=== PATIENT | male | born 1935 | race Caucasian/White ===

== ENCOUNTER 2017-01-08 07:41 | Day surgery (SDC) | payer OTHER ==
[2017-01-08] MEDS ORDERED: DIPHENHYDRAMINE 25 MG in SODIUM CHLORIDE 50 ML IVPB ONE (08:00)
[2017-01-08] MEDS ORDERED: SODIUM CHLORIDE 250 ML IV ONE (08:00)
[2017-01-08] MEDS ORDERED: ACETAMINOPHEN 325 MG TABLET (FP) PO ONE (08:00)
[2017-01-08] MEDS ORDERED: SODIUM CHLORIDE IVPB ONE (08:30)
[2017-01-08] MEDS ORDERED: RITUXIMAB IVPB ONE (08:30)
[2017-01-08 11:19] LABS: BASOPHIL 0.6 % (0-2.0); EOSINOPHIL 0.9 % (0-4.5); MCH 28.1 pg (25.7-33.7); MCHC 33.1 g/dl (32.0-35.9); MEAN CELL VOLUME 84.9 fl (80-96); MEAN PLT VOLUME 8.9 fl (7.5-11.1); NEUTROPHILS 73.5 % (42.8-82.8); PLATELET COUNT 132 K/MM3 (134-434); RDW 14.4 % (11.9-15.9); WHITE BLOOD COUNT 6.3 K/mm3 (4.0-10.0)
[2017-01-08 13:26] LABS: ANION GAP 10 (8-16); C-REACTIVE PROTEIN < 0.3 MG/DL (0.00-0.3); CALCIUM 8.8 mg/dL (8.5-10.1); CO2 27 mmol/L (21-32); COCKROFT - GAULT 77; GLUCOSE,RANDOM 87 mg/dL (74-106); LDH 131 U/L (87-241)
[2017-01-08 13:27] LABS: ALBUMIN 3.4 g/dl (3.4-5.0); BILIRUBIN,DIRECT 0.1 mg/dL (0.0-0.2); BILIRUBIN,TOTAL 0.4 mg/dL (0.2-1.0); TOT PROT 6.9 g/dl (6.4-8.2)
[2017-01-08 13:59] LABS: BASOPHIL 0.5 % (0-2.0); EOSINOPHIL 0.9 % (0-4.5); MCH 27.9 pg (25.7-33.7); MCHC 32.5 g/dl (32.0-35.9); MEAN CELL VOLUME 85.8 fl (80-96); MEAN PLT VOLUME 8.8 fl (7.5-11.1); NEUTROPHILS 75.1 % (42.8-82.8); PLATELET COUNT 130 K/MM3 (134-434); RDW 14.3 % (11.9-15.9); WHITE BLOOD COUNT 6.2 K/mm3 (4.0-10.0)
[2017-01-08 17:26] VITALS: BP 155/83; PULSE 49; TEMP 97.9
[2017-01-09 08:07] LABS: IGG IMMUNOGLOBULIN 1028 mg/dL (700-1600)
== END 2017-01-08 18:14 | disposition home or self-care (01) ==
LOC: JONCCHEMO 07:41 → J7W 12:05 → JONCCHEMO 18:14
PROVIDERS: ATTEND Internal Medicine Hematology & Oncology
PROC: 3E03305 Introduction of Other Antineoplastic into Peripheral Vein, Percutaneous Approach (ICD-10-PCS; principal; 2017-01-08)
PROC: 3E033GC Introduction of Other Therapeutic Substance into Peripheral Vein, Percutaneous Approach (ICD-10-PCS; 2017-01-08)
PROC: 3E0337Z Introduction of Electrolytic and Water Balance Substance into Peripheral Vein, Percutaneous Approach (ICD-10-PCS; 2017-01-08)
DX: Z51.11 Encounter for antineoplastic chemotherapy (principal); C82.28 Follicular lymphoma grade III, unspecified, lymph nodes of multiple sites
CPT/HCPCS: 96367; 96375; 96413; J9310; 36415; 80048; 80076; 82784; 83615; 85025; 85651; 86140; 96360; 96361; 96415

== ENCOUNTER 2017-03-05 07:45 | Day surgery (SDC) | payer OTHER ==
[2017-03-05] MEDS ORDERED: SODIUM CHLORIDE 250 ML IV ONE (08:00)
[2017-03-05] MEDS ORDERED: ACETAMINOPHEN 325 MG TABLET (FP) PO ONE (08:30)
[2017-03-05] MEDS ORDERED: DIPHENHYDRAMINE 25 MG in SODIUM CHLORIDE 50 ML IVPB ONE (08:30)
[2017-03-05] MEDS ORDERED: RITUXIMAB IVPB ONE (09:00)
[2017-03-05] MEDS ORDERED: SODIUM CHLORIDE IVPB ONE (09:00)
[2017-03-05 10:32] LABS: BASOPHIL 0.5 % (0-2.0); EOSINOPHIL 0.7 % (0-4.5); MCHC 33.1 g/dl (32.0-35.9); MEAN CELL VOLUME 84.5 fl (80-96); MEAN PLT VOLUME 8.6 fl (7.5-11.1); NEUTROPHILS 74.8 % (42.8-82.8); PLATELET COUNT 138 K/MM3 (134-434); RDW 13.8 % (11.9-15.9); WHITE BLOOD COUNT 5.7 K/mm3 (4.0-10.0)
[2017-03-05 11:03] LABS: ALBUMIN 3.4 g/dl (3.4-5.0); ALK PHOS 67 U/L (45-117); ANION GAP 6 (8-16); BILIRUBIN,DIRECT 0.2 mg/dL (0.0-0.2); BILIRUBIN,TOTAL 0.4 mg/dL (0.2-1.0); CALCIUM 8.6 mg/dL (8.5-10.1); CO2 25 mmol/L (21-32); GLUCOSE,RANDOM 109 mg/dL (74-106); SGOT/AST 14 U/L (15-37); SGPT/ALT 24 U/L (12-78); TOT PROT 6.9 g/dl (6.4-8.2)
[2017-03-05 16:30] VITALS: BP 149/83; PULSE 51; TEMP 98
[2017-03-06 06:09] LABS: IGG IMMUNOGLOBULIN 1054 mg/dL (700-1600); IGM IMMUNOGLOBULIN 73 mg/dL (15-143)
== END 2017-03-05 16:32 | disposition home or self-care (01) ==
LOC: JONCCHEMO 07:45 → J7W 12:14 → JONCCHEMO 16:32
PROVIDERS: ATTEND Internal Medicine Hematology & Oncology
PROC: 3E03305 Introduction of Other Antineoplastic into Peripheral Vein, Percutaneous Approach (ICD-10-PCS; principal; 2017-03-05)
PROC: 3E033GC Introduction of Other Therapeutic Substance into Peripheral Vein, Percutaneous Approach (ICD-10-PCS; 2017-03-05)
PROC: 3E0337Z Introduction of Electrolytic and Water Balance Substance into Peripheral Vein, Percutaneous Approach (ICD-10-PCS; 2017-03-05)
DX: Z51.11 Encounter for antineoplastic chemotherapy (principal); C82.28 Follicular lymphoma grade III, unspecified, lymph nodes of multiple sites
CPT/HCPCS: 96361; 96375; 96413; 96415; J9310; 36415; 80053; 80076; 82784; 83735; 85025; 85651

== ENCOUNTER 2017-03-11 19:00 | Emergency (ER) | payer OTHER ==
--- NOTE | 2017-03-11 19:20 | PDOC ---
History of Present Illness - General History Source: Patient Exam Limitations: No Limitations - History of Present Illness Initial Comments: 03/11/17 19:46 The patient is a 81 year old male, with a significant past medical history of gout, anxiety, and non-hodgkin's lymphoma that is under control, who presents to the emergency department with increased blood pressure and subjective fever. The patient reports that when he woke up from a nap 1 hour prior to arrival he felt like he was burning up. He reports that his ears felt very hot and he then when he checked his blood pressure it was higher than normal. He then became concerned and came into the ER with his . He denies chest pain, shortness of breath, headache and dizziness. He denies chills, nausea, vomit, diarrhea and constipation. Allergies:iodinated contrast material, penicillins, IVP dye Past surgical history: Bilateral hip replacement Social history: Never smoked PCP: Dr. Tomer Forte <Erlinda Jesus - Last Filed: 03/11/17 19:46> <Rom Kwon - Last Filed: 03/12/17 06:37> - General Chief Complaint: Blood Pressure Problem Stated Complaint: HIGH BLOOD PRESSURE Time Seen by Provider: 03/11/17 19:20 Past History <Erlinda Jesus - Last Filed: 03/11/17 19:46> - Past Medical History Cancer: Yes (BASAL CELL) Kidney Stones: Yes Psychiatric Problems: Yes (ANXIETY) - Surgical History Orthopedic Surgery: Yes (MERNA HIP REPLACEMENT) - Psycho/Social/Smoking Cessation Hx Anxiety: Yes Suicidal Ideation: No Smoking History: Never smoked Have you smoked in the past 12 months: No Hx Alcohol Use: No Drug/Substance Use Hx: No Substance Use Type: Alcohol Hx Substance Use Treatment: No <Rom Kwon - Last Filed: 03/12/17 06:37> - Past Medical History Allergies/Adverse Reactions: Allergies Allergy/AdvReac Type Severity Reaction Status Date / Time Iodinated Contrast Media - Allergy Verified 03/11/17 19:15 Oral and Penicillins Allergy "RASH" Verified 03/11/17 19:15 IVP DYE Allergy Difficulty Uncoded 03/11/17 19:15 Breathing Home Medications: Ambulatory Orders Allopurinol [Zyloprim -] 150 mg PO DAILY 10/23/13 Ascorbic Acid [Vitamin C -] 500 mg PO DAILY 10/23/13 Milk Thistle 500 mg PO DAILY 10/23/13 Saw Wiseman 160 mg PO DAILY 10/23/13 Ubidecarenone [Coenzyme Q10] 100 mg PO DAILY 10/23/13 Cyanocobalamin (Vitamin B-12) [Vitamin B12] 5,000 mcg PO DAILY 12/16/15 Ibuprofen [Advil -] 200 mg PO PRN PRN 12/16/15 Alprazolam 0.125 mg PO ASDIR PRN 04/14/16 Allopurinol [Zyloprim -] 150 mg PO DAILY 03/11/17 Review of Systems - Review of Systems Able to Perform ROS?: Yes Comments:: 03/11/17 19:47 GENERAL/CONSTITUTIONAL: +Subjective fever, +high blood pressure No chills. No weakness. HEAD, EYES, EARS, NOSE AND THROAT: No change in vision. No ear pain or discharge. No sore throat. CARDIOVASCULAR: No chest pain or shortness of breath. RESPIRATORY: No cough, wheezing, or hemoptysis. GASTROINTESTINAL: No nausea, vomiting, diarrhea or constipation. GENITOURINARY: No dysuria, frequency, or change in urination. MUSCULOSKELETAL: No joint or muscle swelling or pain. No neck or back pain. SKIN: No rash NEUROLOGIC: No headache, vertigo, loss of consciousness, or change in strength/ sensation. ENDOCRINE: No increased thirst. No abnormal weight change. HEMATOLOGIC/LYMPHATIC: No anemia, easy bleeding, or history of blood clots. ALLERGIC/IMMUNOLOGIC: No hives or skin allergy. <EdinErlinda - Last Filed: 03/11/17 19:46> *Physical Exam - Vital Signs Last Vital Signs Temp Pulse Resp BP Pulse Ox 97.9 F 60 16 184/64 98 03/11/17 19:13 03/11/17 19:13 03/11/17 19:13 03/11/17 19:13 03/11/17 19:13 - Physical Exam Comments: 03/11/17 19:47 GENERAL: Awake, alert, and fully oriented, in no acute distress HEAD: No signs of trauma EYES: PERRLA, EOMI, sclera anicteric, conjunctiva clear ENT: Auricles normal inspection, hearing grossly normal, nares patent, oropharynx clear without exudates. Moist mucosa NECK: Normal ROM, supple, no lymphadenopathy, JVD, or masses LUNGS: Breath sounds equal, clear to auscultation bilaterally. No wheezes, and no crackles HEART: Regular rate and rhythm, normal S1 and S2, no murmurs, rubs or gallops ABDOMEN: Soft, nontender, normoactive bowel sounds. No guarding, no rebound. No masses EXTREMITIES: Normal range of motion, no edema. No clubbing or cyanosis. No cords, erythema, or tenderness NEUROLOGICAL: Cranial nerves II through XII grossly intact. Normal speech, normal gait SKIN: Warm, Dry, normal turgor, no rashes or lesions noted. <Erlinda Jesus - Last Filed: 03/11/17 19:46> Medical Decision Making - Medical Decision Making 03/12/17 06:36 asymptomatic htn advised re: diet and exercise PCP fu <Rom Kwon - Last Filed: 03/12/17 06:37> *DC/Admit/Observation/Transfer - Attestations Scribe Attestion: 03/11/17 19:47 Documentation prepared by MEG Moreno, acting as medical assistant dermatology for Rom Kwon MD. <Erlinda Jesus - Last Filed: 03/11/17 19:46> <Rom Kwon - Last Filed: 03/12/17 06:37> Diagnosis at time of Disposition: High blood pressure Qualifiers: Hypertension type: unspecified Qualified Code(s): I10 - Essential (primary) hypertension - Discharge Dispostion Disposition: HOME Condition at time of disposition: Good - Referrals Referrals: Tomer Forte MD [Primary Care Provider] - Call tomorrow
[2017-03-11 19:29] VITALS: TEMP 97.9; BMI 31.8
[2017-03-11 20:26] VITALS: BP 162/56; PULSE 56
== END 2017-03-11 20:51 | disposition home or self-care (01) ==
LOC: FER 19:00
DX: I10 Essential (primary) hypertension (principal); Z85.828 Personal history of other malignant neoplasm of skin; F41.9 Anxiety disorder, unspecified; Z96.643 Presence of artificial hip joint, bilateral
CPT/HCPCS: 99281-25

== ENCOUNTER 2017-05-07 07:41 | Day surgery (SDC) | payer OTHER ==
[2017-05-07] MEDS ORDERED: SODIUM CHLORIDE 250 ML IV ONE (08:00)
[2017-05-07] MEDS ORDERED: ACETAMINOPHEN 325 MG TABLET (FP) PO ONE (08:30)
[2017-05-07] MEDS ORDERED: DIPHENHYDRAMINE 25 MG in SODIUM CHLORIDE 50 ML IVPB ONE (08:30)
[2017-05-07] MEDS ORDERED: SODIUM CHLORIDE IVPB ONE (09:00)
[2017-05-07] MEDS ORDERED: RITUXIMAB IVPB ONE (09:00)
[2017-05-07 19:33] VITALS: PULSE 50; TEMP 98
[2017-05-07 19:47] VITALS: BP 146/80
== END 2017-05-07 19:57 | disposition home or self-care (01) ==
LOC: JONCCHEMO 07:41 → J7W 14:40 → JONCCHEMO 19:57
PROVIDERS: ATTEND Internal Medicine Hematology & Oncology
DX: Z51.11 Encounter for antineoplastic chemotherapy (principal); C82.28 Follicular lymphoma grade III, unspecified, lymph nodes of multiple sites
CPT/HCPCS: 96361; 96375; 96413; 96415; J9310

== ENCOUNTER 2017-07-23 07:28 | Day surgery (SDC) | payer OTHER ==
[2017-07-23] MEDS ORDERED: SODIUM CHLORIDE 250 ML IV ONE (08:00)
[2017-07-23] MEDS ORDERED: ACETAMINOPHEN 325 MG TABLET (FP) PO ONE (08:30)
[2017-07-23] MEDS ORDERED: DIPHENHYDRAMINE 25 MG in SODIUM CHLORIDE 50 ML IVPB ONE (08:30)
[2017-07-23] MEDS ORDERED: SODIUM CHLORIDE IVPB ONE (09:00)
[2017-07-23] MEDS ORDERED: RITUXIMAB IVPB ONE (09:00)
[2017-07-23 10:20] LABS: BASOPHIL 0.8 % (0-2.0); EOSINOPHIL 1.2 % (0-4.5); MCH 27.8 pg (25.7-33.7); MCHC 32.7 g/dl (32.0-35.9); MEAN CELL VOLUME 84.9 fl (80-96); MEAN PLT VOLUME 8.9 fl (7.5-11.1); NEUTROPHILS 72.5 % (42.8-82.8); PLATELET COUNT 128 K/MM3 (134-434); RDW 13.8 % (11.9-15.9); WHITE BLOOD COUNT 5.4 K/mm3 (4.0-10.0)
[2017-07-23 10:49] LABS: ALBUMIN 3.2 g/dl (3.4-5.0); ANION GAP 7 (8-16); CALCIUM 8.4 mg/dL (8.5-10.1); CO2 27 mmol/L (21-32); GLUCOSE,RANDOM 123 mg/dL (74-106); MAGNESIUM 1.9 mg/dL (1.8-2.4)
[2017-07-23 10:53] LABS: ALK PHOS 67 U/L (45-117); BILIRUBIN,DIRECT < 0.2 mg/dL (0.0-0.2); BILIRUBIN,TOTAL 0.6 mg/dL (0.2-1.0); CREATININE 0.9 mg/dL (0.7-1.3); SGOT/AST 13 U/L (15-37); SGPT/ALT 22 U/L (12-78); TOT PROT 6.4 g/dl (6.4-8.2)
[2017-07-23 17:35] VITALS: TEMP 97.4
[2017-07-23 17:57] VITALS: BP 153/82; PULSE 54
== END 2017-07-23 17:15 | disposition home or self-care (01) ==
LOC: JONCCHEMO 07:28 → J7W 11:09 → JONCCHEMO 17:15
PROVIDERS: ATTEND Internal Medicine Hematology & Oncology
DX: Z51.11 Encounter for antineoplastic chemotherapy (principal); C82.28 Follicular lymphoma grade III, unspecified, lymph nodes of multiple sites
CPT/HCPCS: 36415; 80053; 80076; 83735; 85025; 96361; 96375; 96413; 96415; J9310

== ENCOUNTER 2017-09-17 07:34 | Day surgery (SDC) | payer OTHER ==
[2017-09-17] MEDS ORDERED: SODIUM CHLORIDE 250 ML IV ONE (08:00)
[2017-09-17] MEDS ORDERED: ACETAMINOPHEN 325 MG TABLET (FP) PO ONE (08:30)
[2017-09-17] MEDS ORDERED: DIPHENHYDRAMINE 25 MG in SODIUM CHLORIDE 100 ML IVPB ONE (08:30)
[2017-09-17] MEDS ORDERED: RITUXIMAB IVPB ONE (09:00)
[2017-09-17] MEDS ORDERED: SODIUM CHLORIDE IVPB ONE (09:00)
[2017-09-17 09:35] LABS: BASO % 0.7 % (0-2.0); HEMATOCRIT 41.9 % (35.4-49); HEMOGLOBIN 13.5 GM/dL (11.7-16.9); LYMPH % 17.3 % (8-40); MCH 27.4 pg (25.7-33.7); MCHC 32.1 g/dl (32.0-35.9); MEAN CELL VOLUME 85.3 fl (80-96); MEAN PLT VOLUME 8.8 fl (7.5-11.1); MONO % 8.8 % (3.8-10.2); NEUT % 72.2 % (42.8-82.8); PLATELET COUNT 144 K/MM3 (134-434); RBC 4.92 M/mm3 (4.00-5.60); WHITE BLOOD COUNT 6.1 K/mm3 (4.0-10.0)
[2017-09-17 10:01] LABS: ALBUMIN 3.2 g/dl (3.4-5.0); ANION GAP 7 (8-16); BILIRUBIN,DIRECT < 0.2 mg/dL (0.0-0.2); BILIRUBIN,TOTAL 0.5 mg/dL (0.2-1.0); BLOOD UREA NITROGEN 23 mg/dL (7-18); CHLORIDE 111 mmol/L (98-107); CO2 23 mmol/L (21-32); CREATININE 1.1 mg/dL (0.7-1.3); GLUCOSE,RANDOM 113 mg/dL (74-106); LDH 134 U/L (87-241); SGOT/AST 11 U/L (15-37); SGPT/ALT 22 U/L (12-78); SODIUM 141 mmol/L (136-145); TOT PROT 6.6 g/dl (6.4-8.2)
[2017-09-17 10:02] LABS: ALK PHOS 67 U/L (45-117)
[2017-09-17 14:38] VITALS: BP 137/66; PULSE 49; TEMP 97.6
[2017-09-18 06:11] LABS: IGA IMMUNOGLOBULIN 450 mg/dL (61-437); IGG IMMUNOGLOBULIN 986 mg/dL (700-1600); IGM IMMUNOGLOBULIN 58 mg/dL (15-143)
== END 2017-09-17 15:20 | disposition home or self-care (01) ==
LOC: JONCCHEMO 07:34 → J7W 09:33 → JONCCHEMO 15:20
PROVIDERS: ATTEND Internal Medicine Hematology & Oncology
DX: Z51.11 Encounter for antineoplastic chemotherapy (principal); C82.28 Follicular lymphoma grade III, unspecified, lymph nodes of multiple sites
CPT/HCPCS: 36415; 80053; 80076; 82784; 83615; 84550; 85025; 96361; 96367; 96375; 96413; 96415; J9310

== ENCOUNTER 2017-11-12 07:20 | Day surgery (SDC) | payer OTHER ==
[2017-11-12] MEDS ORDERED: SODIUM CHLORIDE 250 ML IV ONE (08:00)
[2017-11-12] MEDS ORDERED: DIPHENHYDRAMINE 25 MG in SODIUM CHLORIDE 100 ML IVPB ONE (08:30)
[2017-11-12] MEDS ORDERED: ACETAMINOPHEN 325 MG TABLET (FP) PO ONE (08:30)
[2017-11-12] MEDS ORDERED: RITUXIMAB IVPB ONE (09:00)
[2017-11-12] MEDS ORDERED: SODIUM CHLORIDE IVPB ONE (09:00)
[2017-11-12 09:06] LABS: BASO % 0.6 % (0-2.0); HEMATOCRIT 41.3 % (35.4-49); HEMOGLOBIN 13.7 GM/dL (11.7-16.9); LYMPH % 21.3 % (8-40); MCH 28.2 pg (25.7-33.7); MCHC 33.2 g/dl (32.0-35.9); MEAN CELL VOLUME 84.8 fl (80-96); MEAN PLT VOLUME 8.6 fl (7.5-11.1); MONO % 7.3 % (3.8-10.2); NEUT % 69.8 % (42.8-82.8); PLATELET COUNT 135 K/MM3 (134-434); RBC 4.86 M/mm3 (4.00-5.60); WHITE BLOOD COUNT 5.7 K/mm3 (4.0-10.0)
[2017-11-12 09:33] LABS: ALBUMIN 3.3 g/dl (3.4-5.0); ANION GAP 7 (8-16); BILIRUBIN,TOTAL 0.3 mg/dL (0.2-1.0); BLOOD UREA NITROGEN 17 mg/dL (7-18); CHLORIDE 110 mmol/L (98-107); CO2 23 mmol/L (21-32); CREATININE 1.1 mg/dL (0.7-1.3); GLUCOSE,RANDOM 109 mg/dL (74-106); POTASSIUM 4.5 mmol/L (3.5-5.1); SGOT/AST 12 U/L (15-37); SGPT/ALT 21 U/L (12-78); SODIUM 140 mmol/L (136-145); TOT PROT 6.5 g/dl (6.4-8.2)
[2017-11-12 09:34] LABS: ALK PHOS 71 U/L (45-117)
[2017-11-12 09:43] LABS: BILIRUBIN,DIRECT < 0.2 mg/dL (0.0-0.2)
[2017-11-12] MEDS ORDERED: amLODIPine BESYLATE 5 MG TABLET (FP) PO ONE (10:30)
[2017-11-12 17:41] VITALS: BP 134/70; PULSE 51
[2017-11-12 17:44] VITALS: TEMP 98
== END 2017-11-12 15:40 | disposition home or self-care (01) ==
LOC: JONCCHEMO 07:20 → J7W 09:38 → JONCCHEMO 15:40
PROVIDERS: ATTEND Internal Medicine Hematology & Oncology
DX: Z51.11 Encounter for antineoplastic chemotherapy (principal); C82.28 Follicular lymphoma grade III, unspecified, lymph nodes of multiple sites
CPT/HCPCS: 36415; 80053; 80076; 83735; 85025; 96361; 96375; 96413; 96415; J7030; J9310

== ENCOUNTER 2018-01-07 07:25 | Day surgery (SDC) | payer OTHER ==
[2018-01-07] MEDS ORDERED: SODIUM CHLORIDE 250 ML IV ONE (08:00)
[2018-01-07] MEDS ORDERED: ACETAMINOPHEN 325 MG TABLET (FP) PO ONE (08:30)
[2018-01-07] MEDS ORDERED: DIPHENHYDRAMINE 25 MG in SODIUM CHLORIDE 50 ML IVPB ONE (08:30)
[2018-01-07 08:48] VITALS: TEMP 97.8
[2018-01-07] MEDS ORDERED: SODIUM CHLORIDE IVPB ONE (09:00)
[2018-01-07] MEDS ORDERED: RITUXIMAB IVPB ONE (09:00)
[2018-01-07 09:12] LABS: BASO % 0.7 % (0-2.0); EOS % 1.1 % (0-4.5); HEMATOCRIT 39.6 % (35.4-49); HEMOGLOBIN 13.5 GM/dL (11.7-16.9); LYMPH % 22.4 % (8-40); MCH 28.4 pg (25.7-33.7); MEAN CELL VOLUME 83.4 fl (80-96); MEAN PLT VOLUME 8.6 fl (7.5-11.1); MONO % 7.6 % (3.8-10.2); NEUT % 68.2 % (42.8-82.8); PLATELET COUNT 140 K/MM3 (134-434); RBC 4.74 M/mm3 (4.00-5.60); RDW 13.9 % (11.9-15.9); WHITE BLOOD COUNT 5.4 K/mm3 (4.0-10.0)
[2018-01-07] MEDS ORDERED: amLODIPine BESYLATE 5 MG TABLET (FP) PO PRN (09:39)
[2018-01-07 09:59] LABS: ALBUMIN 3.3 g/dl (3.4-5.0); ANION GAP 6 (8-16); BLOOD UREA NITROGEN 20 mg/dL (7-18); CALCIUM 8.3 mg/dL (8.5-10.1); CHLORIDE 110 mmol/L (98-107); CO2 25 mmol/L (21-32); GLUCOSE,RANDOM 107 mg/dL (74-106); MAGNESIUM 2.1 mg/dL (1.8-2.4); POTASSIUM 4.4 mmol/L (3.5-5.1); SODIUM 141 mmol/L (136-145)
[2018-01-07 10:04] LABS: ALK PHOS 70 U/L (45-117); BILIRUBIN,DIRECT < 0.2 mg/dL (0.0-0.2); BILIRUBIN,TOTAL 0.6 mg/dL (0.2-1.0); CREATININE 1.1 mg/dL (0.7-1.3); SGOT/AST 16 U/L (15-37); SGPT/ALT 22 U/L (12-78); TOT PROT 6.8 g/dl (6.4-8.2)
[2018-01-07 18:32] VITALS: PULSE 49
[2018-01-07 18:41] VITALS: BP 134/53
== END 2018-01-07 15:40 | disposition home or self-care (01) ==
LOC: JONCCHEMO 07:25 → J7W 09:34 → JONCCHEMO 15:40
PROVIDERS: ATTEND Internal Medicine Hematology & Oncology
DX: Z51.11 Encounter for antineoplastic chemotherapy (principal); C82.28 Follicular lymphoma grade III, unspecified, lymph nodes of multiple sites
CPT/HCPCS: 36415; 80053; 80076; 83735; 85025; 96361; 96375; 96413; 96415; J7030; J9310

== ENCOUNTER 2021-03-20 17:09 | Inpatient (IN) | payer OTHER ==
[2021-03-20 17:26] VITALS: BMI 27.9
[2021-03-20 18:12] LABS: BASO % 0.8 % (0-2.0); EOS % 0.7 % (0-4.5); HEMATOCRIT 42.8 % (35.4-49); LYMPH % 19.2 % (8-40); MCH 27.8 pg (25.7-33.7); MCHC 32.7 g/dl (32.0-35.9); MEAN CELL VOLUME 85.1 fl (80-96); MEAN PLT VOLUME 8.7 fl (7.5-11.1); MONO % 5.9 % (3.8-10.2); NEUT % 73.4 % (42.8-82.8); PLATELET COUNT 132 10^3/uL (134-434); RBC 5.03 M/mm3 (4.00-5.60); RDW 15.1 % (11.9-15.9); WHITE BLOOD COUNT 6.5 K/mm3 (4.0-10.0)
[2021-03-20 18:33] LABS: CHLORIDE 110 mmol/L (98-107); SODIUM 139 mmol/L (136-145)
[2021-03-20 18:35] LABS: ALBUMIN 3.2 g/dl (3.4-5.0); ANION GAP 7 MMOL/L (8-16); CALCIUM 8.4 mg/dL (8.5-10.1); CO2 22 mmol/L (21-32)
[2021-03-20 18:36] LABS: BLOOD UREA NITROGEN 18.4 mg/dL (7-18); GLUCOSE,RANDOM 81 mg/dL (74-106)
[2021-03-20 18:38] LABS: SGPT/ALT 22 U/L (13-61)
[2021-03-20 18:39] LABS: SGOT/AST 15 U/L (15-37)
[2021-03-20 18:40] LABS: BILIRUBIN,TOTAL 0.6 mg/dL (0.2-1); TOT PROT 6.9 g/dl (6.4-8.2)
[2021-03-20 18:41] LABS: ALK PHOS 67 U/L (45-117)
[2021-03-20 19:24] LABS: URINE APPEARANCE CLEAR; URINE BILIRUBIN NEGATIVE (NEGATIVE); URINE COLOR YELLOW; URINE GLUCOSE (UA) NEGATIVE (NEGATIVE); URINE KETONE NEGATIVE (NEGATIVE); URINE LEUK ESTERASE NEGATIVE (NEGATIVE); URINE NITRITE NEGATIVE (NEGATIVE); URINE PROTEIN NEGATIVE (NEGATIVE); URINE UROBILINOGEN 0.2 mg/dL (0.2-1.0)
[2021-03-20 23:13] LABS: CHOLESTEROL 194 mg/dL (50-200); TRIGLYCERIDES 110 mg/dL (0-150)
[2021-03-20 23:15] LABS: LDL CHOLESTEROL (ONLY SJRH) 124 mg/dL (5-100)
[2021-03-20 23:16] LABS: HDL CHOLESTEROL 44 mg/dL (40-60)
[2021-03-20 23:18] LABS: N-TERMINAL BNP 584.8 pg/ml (5-450)
[2021-03-21] MEDS ORDERED: amLODIPine BESYLATE 5 MG TABLET (FP) PO ONE ×2 (02:19→04:01)
[2021-03-21 08:05] LABS: HEMATOCRIT 41.8 % (35.4-49); HEMOGLOBIN 14.1 GM/dL (11.7-16.9); MCH 28.6 pg (25.7-33.7); MCHC 33.6 g/dl (32.0-35.9); MEAN CELL VOLUME 85.3 fl (80-96); MEAN PLT VOLUME 8.9 fl (7.5-11.1); PLATELET COUNT 131 10^3/uL (134-434); RDW 14.8 % (11.9-15.9); WHITE BLOOD COUNT 6.2 K/mm3 (4.0-10.0)
[2021-03-21 08:20] LABS: CALCIUM 8.2 mg/dL (8.5-10.1)
[2021-03-21 08:21] LABS: BLOOD UREA NITROGEN 14.4 mg/dL (7-18)
[2021-03-21 08:23] LABS: CREATININE 0.9 mg/dL (0.55-1.3); PHOSPHOROUS 2.8 mg/dL (2.5-4.9)
[2021-03-21] MEDS ORDERED: ENOXAPARIN NA (PORCINE) 60 MG/0.6 ML DISP.SYRIN SQ ONE (09:14)
[2021-03-21] MEDS ORDERED: ENOXAPARIN NA (PORCINE) 30 MG/0.3 ML DISP.SYRIN SQ ONE (09:14)
[2021-03-21] MEDS ORDERED: ENOXAPARIN SQ SCH (10:00)
[2021-03-21] MEDS ORDERED: ENOXAPARIN NA (PORCINE) 40 MG/0.4 ML DISP.SYRIN SQ SCH ×2 (10:00)
[2021-03-21] MEDS: ENOXAPARIN NA (PORCINE) 100 MG/1 ML DISP.SYRIN SQ SCH (21:34)
[2021-03-22 07:59] LABS: BASO % 0.8 % (0-2.0); EOS % 1.5 % (0-4.5); HEMATOCRIT 43.3 % (35.4-49); HEMOGLOBIN 14.5 GM/dL (11.7-16.9); LYMPH % 21.3 % (8-40); MCH 28.5 pg (25.7-33.7); MCHC 33.5 g/dl (32.0-35.9); MEAN CELL VOLUME 85.1 fl (80-96); MEAN PLT VOLUME 8.6 fl (7.5-11.1); MONO % 6.7 % (3.8-10.2); NEUT % 69.7 % (42.8-82.8); PLATELET COUNT 133 10^3/uL (134-434); RBC 5.09 M/mm3 (4.00-5.60); RDW 14.7 % (11.9-15.9)
[2021-03-22 08:31] LABS: BLOOD UREA NITROGEN 14.2 mg/dL (7-18); CALCIUM 8.6 mg/dL (8.5-10.1)
[2021-03-22 08:36] LABS: BILIRUBIN,TOTAL 0.7 mg/dL (0.2-1); TOT PROT 6.6 g/dl (6.4-8.2)
[2021-03-22] MEDS: ALLOPURINOL 300 MG TABLET (FP) PO SCH (11:12)
[2021-03-22] MEDS: ENOXAPARIN NA (PORCINE) 100 MG/1 ML DISP.SYRIN SQ SCH ×2 (11:12→21:55)
[2021-03-23 08:00] LABS: BASO % 0.7 % (0-2.0); EOS % 1.1 % (0-4.5); HEMATOCRIT 43.2 % (35.4-49); HEMOGLOBIN 14.3 GM/dL (11.7-16.9); LYMPH % 24.2 % (8-40); MCH 28.4 pg (25.7-33.7); MCHC 33.2 g/dl (32.0-35.9); MEAN CELL VOLUME 85.5 fl (80-96); MEAN PLT VOLUME 8.7 fl (7.5-11.1); PLATELET COUNT 137 10^3/uL (134-434); RBC 5.05 M/mm3 (4.00-5.60); RDW 14.8 % (11.9-15.9); WHITE BLOOD COUNT 6.4 K/mm3 (4.0-10.0)
[2021-03-23 08:09] LABS: ALBUMIN 2.9 g/dl (3.4-5.0); BLOOD UREA NITROGEN 16.6 mg/dL (7-18); CALCIUM 8.2 mg/dL (8.5-10.1)
[2021-03-23 08:10] LABS: MAGNESIUM 2.1 mg/dL (1.8-2.4)
[2021-03-23 08:12] LABS: PHOSPHOROUS 3.1 mg/dL (2.5-4.9)
[2021-03-23 08:13] LABS: BILIRUBIN,TOTAL 0.5 mg/dL (0.2-1)
[2021-03-23 08:14] LABS: TOT PROT 6.5 g/dl (6.4-8.2)
[2021-03-23] MEDS: ALLOPURINOL 300 MG TABLET (FP) PO SCH (10:35)
[2021-03-23] MEDS: ENOXAPARIN NA (PORCINE) 100 MG/1 ML DISP.SYRIN SQ SCH ×2 (10:39→21:34)
[2021-03-23] MEDS ORDERED: DOCUSATE SODIUM 100 MG CAPSULE (FP) PO ONE (14:21)
[2021-03-23] MEDS ORDERED: SENNOSIDES 8.6MG TABLET (FP) PO ONE (14:21)
[2021-03-24 07:36] LABS: BASO % 0.6 % (0-2.0); HEMATOCRIT 43.7 % (35.4-49); HEMOGLOBIN 14.6 GM/dL (11.7-16.9); LYMPH % 21.8 % (8-40); MCH 28.3 pg (25.7-33.7); MCHC 33.4 g/dl (32.0-35.9); MEAN CELL VOLUME 84.6 fl (80-96); MEAN PLT VOLUME 8.8 fl (7.5-11.1); MONO % 6.4 % (3.8-10.2); NEUT % 70.2 % (42.8-82.8); PLATELET COUNT 141 10^3/uL (134-434); RBC 5.16 M/mm3 (4.00-5.60); RDW 14.5 % (11.9-15.9); WHITE BLOOD COUNT 6.8 K/mm3 (4.0-10.0)
[2021-03-24 07:49] LABS: CALCIUM 8.2 mg/dL (8.5-10.1)
[2021-03-24 07:50] LABS: MAGNESIUM 2.2 mg/dL (1.8-2.4)
[2021-03-24 07:52] LABS: BILIRUBIN,TOTAL 0.6 mg/dL (0.2-1); TOT PROT 6.6 g/dl (6.4-8.2)
[2021-03-24 07:53] LABS: CREATININE 0.9 mg/dL (0.55-1.3)
[2021-03-24] MEDS: ALLOPURINOL 300 MG TABLET (FP) PO SCH (09:25)
[2021-03-24] MEDS: ENOXAPARIN NA (PORCINE) 100 MG/1 ML DISP.SYRIN SQ SCH (09:25)
[2021-03-24] MEDS ORDERED: ENOXAPARIN NA (PORCINE) 100 MG/1 ML DISP.SYRIN SQ SCH (12:39)
[2021-03-25 02:33] VITALS: BP 137/71; PULSE 47; TEMP 97.7
== END 2021-03-25 08:00 | disposition short-term general hospital (02) | DRG 310 ==
LOC: JER 17:09 → JERBED 17:56 → J4W 03-21 01:40
PROVIDERS: ADMIT Internal Medicine; ATTEND Internal Medicine
DX: I48.92 Unspecified atrial flutter (principal); I48.91 Unspecified atrial fibrillation; R55 Syncope and collapse; N20.0 Calculus of kidney; I10 Essential (primary) hypertension; E78.5 Hyperlipidemia, unspecified; M10.9 Gout, unspecified; F41.9 Anxiety disorder, unspecified; N40.0 Benign prostatic hyperplasia without lower urinary tract symptoms; R00.1 Bradycardia, unspecified
CPT/HCPCS: 36415; 70450-TC; 71045-TC-FY; 72125-TC; 80048; 80053; 80061; 81003; 82550; 83036; 83721; 83735; 83880; 84100; 84436; 84443; 84484; 85025; 85027; 87086; 93005; 93010; 93306-TC; 93880-TC; 97116-GP; 97161-GP; 99285-25; C9803; U0003; U0005

== ENCOUNTER 2021-04-11 12:44 | Emergency (ER) | payer OTHER ==
[2021-04-11 12:48] VITALS: BP 144/86; PULSE 66; TEMP 98.6; BMI 27.9
== END 2021-04-11 13:30 | disposition home or self-care (01) ==
LOC: JER 12:44
DX: I48.3 Typical atrial flutter (principal); L76.22 Postprocedural hemorrhage of skin and subcutaneous tissue following other procedure
CPT/HCPCS: 99281-25

== ENCOUNTER 2022-02-08 08:37 | Observation (INO) | payer OTHER ==
[2022-02-08 08:57] VITALS: BMI 25.8
[2022-02-08] MEDS ORDERED: ACETAMINOPHEN 325 MG TABLET (FP) PO ONE (09:20)
[2022-02-08 09:52] LABS: BASO % 0.5 % (0-2.0); EOS % 0.3 % (0-4.5); HEMATOCRIT 39.4 % (35.4-49); HEMOGLOBIN 12.8 GM/dL (11.7-16.9); MCH 27.2 pg (25.7-33.7); MCHC 32.4 g/dl (32.0-35.9); MEAN PLT VOLUME 8.1 fl (7.5-11.1); NEUT % 78.2 % (42.8-82.8); PLATELET COUNT 166 10^3/uL (134-434); RBC 4.68 M/mm3 (4.00-5.60); RDW 15.3 % (11.9-15.9); WHITE BLOOD COUNT 6.1 K/mm3 (4.0-10.0)
[2022-02-08] MEDS ORDERED: ACETAMINOPHEN 325 MG TABLET (FP) ONE (09:58)
[2022-02-08 10:11] LABS: ALBUMIN 3.1 g/dl (3.4-5.0); BLOOD UREA NITROGEN 18.4 mg/dL (7-18); CALCIUM 8.3 mg/dL (8.5-10.1)
[2022-02-08 10:14] LABS: CREATININE 0.9 mg/dL (0.55-1.3)
[2022-02-08 10:16] LABS: ACTIVATED PTT 28.7 SECONDS (25.2-36.5); BILIRUBIN,TOTAL 0.6 mg/dL (0.2-1); TOT PROT 6.4 g/dl (6.4-8.2)
[2022-02-08 10:17] LABS: INR 1.56 (0.83-1.09)
[2022-02-08 10:39] LABS: PH,URINE 8.5 (5.0-8.0); URINE APPEARANCE CLEAR; URINE BILIRUBIN NEGATIVE (NEGATIVE); URINE COLOR YELLOW; URINE GLUCOSE (UA) NEGATIVE (NEGATIVE); URINE KETONE NEGATIVE (NEGATIVE); URINE LEUK ESTERASE NEGATIVE (NEGATIVE); URINE NITRITE NEGATIVE (NEGATIVE); URINE PROTEIN NEGATIVE (NEGATIVE); URINE UROBILINOGEN 0.2 mg/dL (0.2-1.0)
[2022-02-08] MEDS ORDERED: SODIUM CHLORIDE 1,000 ML IV SCH (12:45)
[2022-02-08] MEDS: ACETAMINOPHEN 325 MG TABLET (FP) PO PRN (21:56)
[2022-02-08] MEDS: APIXABAN 2.5 MG TABLET PO SCH (21:56)
[2022-02-09 06:42] LABS: BASO % 0.7 % (0-2.0); EOS % 0.9 % (0-4.5); HEMATOCRIT 37.3 % (35.4-49); HEMOGLOBIN 12.3 GM/dL (11.7-16.9); LYMPH % 17.9 % (8-40); MCH 27.8 pg (25.7-33.7); MEAN CELL VOLUME 84.3 fl (80-96); MEAN PLT VOLUME 8.4 fl (7.5-11.1); MONO % 6.1 % (3.8-10.2); NEUT % 74.4 % (42.8-82.8); PLATELET COUNT 135 10^3/uL (134-434); RBC 4.42 M/mm3 (4.00-5.60); RDW 14.9 % (11.9-15.9); WHITE BLOOD COUNT 5.8 K/mm3 (4.0-10.0)
[2022-02-09 07:05] LABS: ACTIVATED PTT 28.8 SECONDS (25.2-36.5); INR 1.39 (0.83-1.09)
[2022-02-09 07:12] LABS: ALBUMIN 2.7 g/dl (3.4-5.0); BLOOD UREA NITROGEN 13.7 mg/dL (7-18); PHOSPHOROUS 2.9 mg/dL (2.5-4.9)
[2022-02-09 07:13] LABS: TOT PROT 5.9 g/dl (6.4-8.2)
[2022-02-09 07:14] LABS: BILIRUBIN,TOTAL 0.7 mg/dL (0.2-1); CALCIUM 7.9 mg/dL (8.5-10.1)
[2022-02-09 07:15] LABS: CREATININE 0.8 mg/dL (0.55-1.3); MAGNESIUM 2.2 mg/dL (1.8-2.4)
[2022-02-09] MEDS: metoPROLOL SUCCINATE 25 MG TAB.SR.24H (FP) PO SCH ×3 (11:11→11:24)
[2022-02-09] MEDS: APIXABAN 2.5 MG TABLET PO SCH ×2 (11:11→21:33)
[2022-02-09] MEDS: ACETAMINOPHEN 325 MG TABLET (FP) PO PRN (16:47)
[2022-02-09] MEDS ORDERED: ALPRAZolam 1 MG TABLET PO PRN (18:08)
[2022-02-09] MEDS: ALPRAZolam 0.25 MG TABLET PO PRN (21:32)
[2022-02-09] MEDS: POLYETHYLENE GLYCOL (HEALTHYLAX) 3350 17 GM PACKET PO SCH (21:32)
[2022-02-09] MEDS ORDERED: APIXABAN 2.5 MG TABLET PO SCH (22:00)
[2022-02-10] MEDS: metoPROLOL SUCCINATE 25 MG TAB.SR.24H (FP) PO SCH (09:26)
[2022-02-10] MEDS: APIXABAN 2.5 MG TABLET PO SCH ×3 (09:26→22:04)
[2022-02-10] MEDS: ALLOPURINOL 300 MG TABLET (FP) PO SCH (09:26)
[2022-02-10] MEDS: POLYETHYLENE GLYCOL (HEALTHYLAX) 3350 17 GM PACKET PO SCH ×3 (09:26→22:04)
[2022-02-10] MEDS: ALPRAZolam 0.25 MG TABLET PO PRN (09:26)
[2022-02-10] MEDS ORDERED: MAGNESIUM HYDROX 2400MG/30ML ORAL SUSPENSION 30 ML CUP PO ONE (12:15)
[2022-02-10] MEDS ORDERED: MAGNESIUM CITRATE 300 ML BOTTLE PO ONE (12:15)
[2022-02-10] MEDS: ACETAMINOPHEN 325 MG TABLET (FP) PO PRN (20:54)
[2022-02-11] MEDS: ACETAMINOPHEN 325 MG TABLET (FP) PO PRN ×2 (09:25→21:44)
[2022-02-11] MEDS: APIXABAN 2.5 MG TABLET PO SCH ×2 (09:26→21:44)
[2022-02-11] MEDS: metoPROLOL SUCCINATE 25 MG TAB.SR.24H (FP) PO SCH (09:26)
[2022-02-11] MEDS: ALLOPURINOL 300 MG TABLET (FP) PO SCH (09:26)
[2022-02-11] MEDS: POLYETHYLENE GLYCOL (HEALTHYLAX) 3350 17 GM PACKET PO SCH ×2 (09:27→21:44)
[2022-02-12 07:29] LABS: BASO % 0.7 % (0-2.0); HEMATOCRIT 40.6 % (35.4-49); HEMOGLOBIN 13.4 GM/dL (11.7-16.9); LYMPH % 16.8 % (8-40); MCH 27.9 pg (25.7-33.7); MEAN CELL VOLUME 84.4 fl (80-96); MEAN PLT VOLUME 8.4 fl (7.5-11.1); MONO % 7.1 % (3.8-10.2); NEUT % 74.4 % (42.8-82.8); PLATELET COUNT 166 10^3/uL (134-434); RBC 4.81 M/mm3 (4.00-5.60); RDW 15.2 % (11.9-15.9)
[2022-02-12] MEDS: ACETAMINOPHEN 325 MG TABLET (FP) PO PRN ×2 (07:34→22:00)
[2022-02-12 07:48] LABS: CALCIUM 8.3 mg/dL (8.5-10.1)
[2022-02-12 07:49] LABS: ALBUMIN 2.8 g/dl (3.4-5.0); BLOOD UREA NITROGEN 16.6 mg/dL (7-18); MAGNESIUM 2.1 mg/dL (1.8-2.4)
[2022-02-12 07:54] LABS: BILIRUBIN,TOTAL 0.6 mg/dL (0.2-1); TOT PROT 6.5 g/dl (6.4-8.2)
[2022-02-12] MEDS: POLYETHYLENE GLYCOL (HEALTHYLAX) 3350 17 GM PACKET PO SCH ×2 (09:33→22:00)
[2022-02-12] MEDS: ALPRAZolam 0.25 MG TABLET PO PRN (09:34)
[2022-02-12] MEDS: APIXABAN 2.5 MG TABLET PO SCH ×2 (09:34→22:00)
[2022-02-12] MEDS: metoPROLOL SUCCINATE 25 MG TAB.SR.24H (FP) PO SCH (09:34)
[2022-02-12] MEDS: ALLOPURINOL 300 MG TABLET (FP) PO SCH (09:34)
[2022-02-13 08:16] LABS: BASO % 0.5 % (0-2.0); HEMATOCRIT 41.4 % (35.4-49); HEMOGLOBIN 13.4 GM/dL (11.7-16.9); LYMPH % 19.3 % (8-40); MCH 27.4 pg (25.7-33.7); MCHC 32.4 g/dl (32.0-35.9); MEAN CELL VOLUME 84.4 fl (80-96); MEAN PLT VOLUME 8.5 fl (7.5-11.1); MONO % 7.7 % (3.8-10.2); NEUT % 71.5 % (42.8-82.8); PLATELET COUNT 163 10^3/uL (134-434); RDW 14.8 % (11.9-15.9); WHITE BLOOD COUNT 6.7 K/mm3 (4.0-10.0)
[2022-02-13 08:47] LABS: ALBUMIN 2.8 g/dl (3.4-5.0); BLOOD UREA NITROGEN 17.5 mg/dL (7-18); CALCIUM 8.3 mg/dL (8.5-10.1); MAGNESIUM 2.3 mg/dL (1.8-2.4)
[2022-02-13 08:50] LABS: PHOSPHOROUS 3.5 mg/dL (2.5-4.9)
[2022-02-13 08:51] LABS: TOT PROT 6.4 g/dl (6.4-8.2)
[2022-02-13 08:52] LABS: BILIRUBIN,TOTAL 0.5 mg/dL (0.2-1)
[2022-02-13] MEDS: ALLOPURINOL 300 MG TABLET (FP) PO SCH (09:06)
[2022-02-13] MEDS: APIXABAN 2.5 MG TABLET PO SCH ×2 (09:07→21:06)
[2022-02-13] MEDS: metoPROLOL SUCCINATE 25 MG TAB.SR.24H (FP) PO SCH (09:07)
[2022-02-13] MEDS: POLYETHYLENE GLYCOL (HEALTHYLAX) 3350 17 GM PACKET PO SCH ×2 (09:08→21:06)
[2022-02-14] MEDS: APIXABAN 2.5 MG TABLET PO SCH ×2 (10:20→21:31)
[2022-02-14] MEDS: metoPROLOL SUCCINATE 25 MG TAB.SR.24H (FP) PO SCH (10:20)
[2022-02-14] MEDS: ALLOPURINOL 300 MG TABLET (FP) PO SCH (10:21)
[2022-02-14] MEDS: POLYETHYLENE GLYCOL (HEALTHYLAX) 3350 17 GM PACKET PO SCH ×2 (10:22→21:31)
[2022-02-15] MEDS: APIXABAN 2.5 MG TABLET PO SCH ×2 (11:02→21:21)
[2022-02-15] MEDS: metoPROLOL SUCCINATE 25 MG TAB.SR.24H (FP) PO SCH (11:03)
[2022-02-15] MEDS: ALLOPURINOL 300 MG TABLET (FP) PO SCH (11:03)
[2022-02-15] MEDS: POLYETHYLENE GLYCOL (HEALTHYLAX) 3350 17 GM PACKET PO SCH ×2 (11:11→21:21)
[2022-02-16 08:27] LABS: BASO % 0.7 % (0-2.0); EOS % 1.6 % (0-4.5); HEMATOCRIT 39.7 % (35.4-49); HEMOGLOBIN 13.2 GM/dL (11.7-16.9); LYMPH % 18.4 % (8-40); MCH 27.7 pg (25.7-33.7); MCHC 33.1 g/dl (32.0-35.9); MEAN CELL VOLUME 83.5 fl (80-96); MEAN PLT VOLUME 8.6 fl (7.5-11.1); MONO % 7.2 % (3.8-10.2); NEUT % 72.1 % (42.8-82.8); PLATELET COUNT 192 10^3/uL (134-434); RBC 4.76 M/mm3 (4.00-5.60); RDW 14.3 % (11.9-15.9); WHITE BLOOD COUNT 7.7 K/mm3 (4.0-10.0)
[2022-02-16 08:50] LABS: CALCIUM 8.4 mg/dL (8.5-10.1)
[2022-02-16 08:51] LABS: BLOOD UREA NITROGEN 26.7 mg/dL (7-18)
[2022-02-16 08:53] LABS: CREATININE 1.1 mg/dL (0.55-1.3)
[2022-02-16] MEDS: ALLOPURINOL 300 MG TABLET (FP) PO SCH (10:33)
[2022-02-16] MEDS: POLYETHYLENE GLYCOL (HEALTHYLAX) 3350 17 GM PACKET PO SCH ×3 (10:33→21:43)
[2022-02-16] MEDS: metoPROLOL SUCCINATE 25 MG TAB.SR.24H (FP) PO SCH (10:33)
[2022-02-16] MEDS: ACETAMINOPHEN 325 MG TABLET (FP) PO PRN (10:34)
[2022-02-16] MEDS: APIXABAN 2.5 MG TABLET PO SCH ×2 (10:34→21:43)
[2022-02-17] MEDS: POLYETHYLENE GLYCOL (HEALTHYLAX) 3350 17 GM PACKET PO SCH ×2 (09:26→21:00)
[2022-02-17] MEDS: ALLOPURINOL 300 MG TABLET (FP) PO SCH (09:26)
[2022-02-17] MEDS: metoPROLOL SUCCINATE 25 MG TAB.SR.24H (FP) PO SCH (09:27)
[2022-02-17] MEDS: APIXABAN 2.5 MG TABLET PO SCH ×2 (09:27→21:00)
[2022-02-17] MEDS: ZINC OXIDE 20% TOPICAL OINTMENT 30 GM TUBE TP SCH (14:51)
[2022-02-17] MEDS: HYDROCORTISONE 1% TOPICAL LOTION 118 ML BOTTLE TP PRN (14:51)
[2022-02-17] MEDS: ACETAMINOPHEN 325 MG TABLET (FP) PO PRN (20:41)
[2022-02-18] MEDS: metoPROLOL SUCCINATE 25 MG TAB.SR.24H (FP) PO SCH (09:27)
[2022-02-18] MEDS: ALLOPURINOL 300 MG TABLET (FP) PO SCH (09:27)
[2022-02-18] MEDS: APIXABAN 2.5 MG TABLET PO SCH ×2 (09:27→22:11)
[2022-02-18] MEDS: ZINC OXIDE 20% TOPICAL OINTMENT 30 GM TUBE TP SCH (09:28)
[2022-02-18] MEDS: POLYETHYLENE GLYCOL (HEALTHYLAX) 3350 17 GM PACKET PO SCH ×2 (09:28→22:11)
[2022-02-18] MEDS: ACETAMINOPHEN 325 MG TABLET (FP) PO PRN (12:08)
[2022-02-18] MEDS: HYDROCORTISONE 1% TOPICAL LOTION 118 ML BOTTLE TP PRN (16:52)
[2022-02-19] MEDS: ALLOPURINOL 300 MG TABLET (FP) PO SCH (09:57)
[2022-02-19] MEDS: APIXABAN 2.5 MG TABLET PO SCH ×2 (09:57→22:42)
[2022-02-19] MEDS: POLYETHYLENE GLYCOL (HEALTHYLAX) 3350 17 GM PACKET PO SCH ×2 (09:58→22:42)
[2022-02-19] MEDS: ZINC OXIDE 20% TOPICAL OINTMENT 30 GM TUBE TP SCH (09:58)
[2022-02-19] MEDS: metoPROLOL SUCCINATE 25 MG TAB.SR.24H (FP) PO SCH (09:59)
[2022-02-20] MEDS: metoPROLOL SUCCINATE 25 MG TAB.SR.24H (FP) PO SCH (09:30)
[2022-02-20] MEDS: ALLOPURINOL 300 MG TABLET (FP) PO SCH (09:30)
[2022-02-20] MEDS: APIXABAN 2.5 MG TABLET PO SCH (09:30)
[2022-02-20] MEDS: POLYETHYLENE GLYCOL (HEALTHYLAX) 3350 17 GM PACKET PO SCH (09:31)
[2022-02-20] MEDS: ZINC OXIDE 20% TOPICAL OINTMENT 30 GM TUBE TP SCH (09:34)
[2022-02-20 13:41] VITALS: PULSE 61
[2022-02-20 14:57] VITALS: BP 138/70; TEMP 97.5
== END 2022-02-20 17:15 ==
LOC: JER 08:37 → JERBED 12:34 → J4W 18:36 → J7W 02-15 11:39
PROVIDERS: ADMIT Internal Medicine; ATTEND Internal Medicine
PROC: 3E0337Z Introduction of Electrolytic and Water Balance Substance into Peripheral Vein, Percutaneous Approach (ICD-10-PCS; principal; 2022-02-08)
DX: G20 Parkinson's disease (principal); I48.91 Unspecified atrial fibrillation; M10.9 Gout, unspecified; Z79.01 Long term (current) use of anticoagulants; C85.90 Non-Hodgkin lymphoma, unspecified, unspecified site; R26.89 Other abnormalities of gait and mobility; Z95.0 Presence of cardiac pacemaker; I49.5 Sick sinus syndrome; I48.92 Unspecified atrial flutter; Z91.041 Radiographic dye allergy status; R29.6 Repeated falls; W18.39XA Other fall on same level, initial encounter; Y93.89 Activity, other specified; Y92.009 Unspecified place in unspecified non-institutional (private) residence as the place of occurrence of the external cause; Z88.0 Allergy status to penicillin
CPT/HCPCS: 0241U-QW; 36415; 70450-TC; 71045-TC-FY; 72125-TC; 72170-TC-FY; 73030-TC-RT-FY; 80048; 80053; 81003; 82607; 83735; 84100; 84443; 84484; 85025; 85610; 85730; 86850; 86900; 86901; 87086; 93005; 93010; 96360; 97116-GP; 97162-GP; 99285-25; C9803-CS; G0378; U0003; U0005